=== PATIENT | male | born 1935 | race Caucasian/White ===

== ENCOUNTER 2024-03-02 19:04 | Emergency (ER) | payer MEDICARE, BC ==
[~2024-03-02] VITALS: Ht 185.4 cm; Wt 98.6 kg
[2024-03-02 19:29] LABS: BASO # 0.01 K/mm3 (0.02-0.10); EOS % 1.5 % (0.0-4.0); HEMATOCRIT 31.7 % (42.0-52.0); HEMOGLOBIN 10.3 g/dL (13.5-18.0); LYMPH# 0.99 K/mm3 (1.50-4.00); MEAN CELL VOLUME 94 fl (78-100); MEAN CORPUSCULAR HEMOGLOBIN 31 pg (27-31); MEAN CORPUSCULAR HGB CONC 33 g/dL (33-37); MEAN PLATELET VOLUME 9.6 fl (7.4-10.4); MONO # 1.26 K/mm3 (0.20-0.80); NEU # 10.42 K/mm3 (1.40-6.50); PLATELET COUNT 257 K/mm3 (130-400); RED BLOOD COUNT 3.37 M/mm3 (4.20-5.60); RED CELL DISTRIBUTION WIDTH 14.3 % (11.5-14.5); WHITE BLOOD COUNT 12.9 K/mm3 (4.8-10.8)
[2024-03-02 19:39] LABS: ALBUMIN 3.7 g/dL (3.4-4.8)
[2024-03-02 19:41] LABS: CALCIUM 9.3 mg/dL (8.3-10.5)
[2024-03-02 19:42] LABS: TOTAL PROTEIN 7.2 g/dL (6.2-8.1)
[2024-03-02 19:44] LABS: TOTAL BILIRUBIN 0.4 mg/dL (0.2-1.2)
[2024-03-02] MEDS ORDERED: GLUCOTROL 5M5 MG/TAB PO (19:45)
[2024-03-02] MEDS ORDERED: ATORVASTATIN CA80 MG PO (19:45)
[2024-03-02] MEDS ORDERED: LEVOTHYROXINE0.15 MG PO (19:45)
[2024-03-02] MEDS ORDERED: CLOPIDOGREL75 M2 PO (19:45)
[2024-03-02] MEDS ORDERED: METOPROLOL SUCC25 M1 PO (19:46)
[2024-03-02] MEDS ORDERED: KAPSPARGO SPRIN25 MG PO (19:48)
[2024-03-02] MEDS ORDERED: TRADJENTA5 MG PO (19:48)
[2024-03-02] MEDS ORDERED: TRAMADOL 50 MG TAB PO (19:50)
[2024-03-02] MEDS ORDERED: ADULT LOW DOSE81 MG PO (19:52)
[2024-03-02] MEDS ORDERED: VITAMIN B121000 MC3 PO (19:53)
[2024-03-02 20:28] LABS: D-DIMER 2.29 mg/L FEU (0.15-0.50)
[2024-03-02] MEDS ORDERED: NS 1,000 ML IV SCH ×2 (20:30→22:15)
[2024-03-02] MEDS ORDERED: Heparin 5,000 UNITS/ML 1 ML VIAL IV ONE (22:15)
[2024-03-02] MEDS ORDERED: Heparin 5,000 UNITS/ML 1 ML VIAL IV PRN (22:15)
[2024-03-02 22:58] LABS: PARTIAL THROMBOPLASTIN TIME 25.8 SECONDS (21.0-32.0); PROTHROMBIN TIME 10.2 SECONDS (9.0-12.0)
[2024-03-02 23:59] VITALS: BP 112/71
== END 2024-03-03 00:33 | disposition short-term general hospital (02) ==
LOC: ED 19:04
PROVIDERS: Family Medicine
DX: R06.00 Dyspnea, unspecified (principal); R07.9 Chest pain, unspecified; E86.0 Dehydration; J02.9 Acute pharyngitis, unspecified; R79.89 Other specified abnormal findings of blood chemistry
CPT/HCPCS: J1644; J7030